=== PATIENT | male | born 1995 | race African-American/Black ===

== ENCOUNTER 2023-06-28 13:13 | Emergency (ER) | payer OTHER ==
[~2023-06-28] VITALS: Ht 182.9 cm; Wt 73.0 kg
[2023-06-28] MEDS ORDERED: CIALIS (13:22)
[2023-06-28] MEDS ORDERED: SEROQUEL (13:22)
[2023-06-28] MEDS ORDERED: DEPAKOTE (13:22)
[2023-06-28 15:00] LABS: BASOPHILS % 0.2 % (0.0-2.0); HEMATOCRIT. 42.9 % (42.0-52.0); HEMOGLOBIN. 14.1 g/dL (14.0-18.0); LYMPHOCYTES % 16.8 % (20.0-50.0); MEAN CORPUSCULAR HEMOGLOBIN 27.5 pg (28.0-32.0); MEAN CORPUSCULAR VOLUME 83.4 fL (80.0-94.0); MEAN PLATELET VOLUME 9.3 fl (7.4-10.4); MONOCYTES % 7.9 % (2.0-8.0); NEUTROPHILS % 75.1 % (40.0-76.0); PLATELET 242 x1000/uL (130-400); RED BLOOD CELL COUNT 5.14 mill/uL (4.7-6.1); RED CELL DISTRIBUTION WIDTH 13.9 % (11.6-14.6); WHITE BLOOD COUNT 8.6 x1000/uL (4.5-11.0)
[2023-06-28 15:21] LABS: *AMPHETAMINES SCREEN URINE NEGATIVE (NEGATIVE); *BARBITURATES SCREEN URINE NEGATIVE (NEGATIVE); *BENZODIAZEPINES SCREEN URINE NEGATIVE (NEGATIVE); *COCAINE SCREEN URINE NEGATIVE (NEGATIVE); CANNABINOID URINE SCREEN PRESUMTIVE POSITIVE (NEGATIVE); ECSTASY MDMA SCREEN URINE NEGATIVE (NEGATIVE); OPIATES URINE SCREEN NEGATIVE (NEGATIVE); PHENCYCLIDINE URINE SCREEN NEGATIVE (NEGATIVE)
[2023-06-28 15:24] LABS: ACETAMINOPHEN <2 ug/mL ug/mL (10-30); CALCIUM 9.8 mg/dL (8.5-10.1); CARBON DIOXIDE 27 mEq/L (21-32); CHLORIDE 103 mEq/L (98-107); GLUCOSE 95 mg/dL (70-105); INDEX HEMOLYSI 1 (1-3); INDEX ICTERIC 1 (1-4); INDEX LIPEMIC 1 (1-3); POTASSIUM 3.3 mEq/L (3.5-5.1); SODIUM 139 mEq/L (136-145)
[2023-06-28 15:50] LABS: UREA NITROGEN BLOOD 14 mg/dL (7-21)
[2023-06-28 17:01] LABS: ETHANOL BLOOD < 10 mg/dL (<10)
[2023-06-28] MEDS ORDERED: POTASSIUM CHLORIDE 20MEQ/PACKET PO NR (18:00)
[2023-06-29] MEDS ORDERED: ZIPRASIDONE MESYLATE 20MG/VIAL IM NR (02:30)
[2023-06-29] MEDS ORDERED: MIDAZOLAM HCL 2 MG/2 ML VIAL IV ONE (12:45)
[2023-06-29] MEDS ORDERED: ZIPRASIDONE MESYLATE 20MG/VIAL IM ONE (12:45)
[2023-06-29] MEDS ORDERED: MIDAZOLAM HCL 2 MG/2 ML VIAL IM NR (13:30)
[2023-06-29] MEDS: OLANZAPINE 5MG TABLET ODT PO SCH ×2 (14:04→18:30)
[2023-06-30] MEDS: OLANZAPINE 5MG TABLET ODT PO SCH ×2 (09:58→18:50)
[2023-06-30] MEDS ORDERED: OLANZAPINE 10 MG/VIAL IM ONE (20:30)
[2023-06-30 21:45] VITALS: O2SAT 99
[2023-07-01] MEDS ORDERED: QUETIAPINE FUMARATE 50MG TABLET PO STA (02:04)
[2023-07-01] MEDS ORDERED: HALOPERIDOL LACTATE 5MG/ML VIAL IM ONE (04:45)
[2023-07-01] MEDS ORDERED: LORAZEPAM 2MG/ML CPJ IM ONE (04:45)
[2023-07-01 12:51] LABS: CALCIUM 8.9 mg/dL (8.5-10.1); CARBON DIOXIDE 27 mEq/L (21-32); CHLORIDE 107 mEq/L (98-107); INDEX HEMOLYSI 1 (1-3); INDEX ICTERIC 1 (1-4); INDEX LIPEMIC 1 (1-3); POTASSIUM 3.8 mEq/L (3.5-5.1); SODIUM 140 mEq/L (136-145); UREA NITROGEN BLOOD 13 mg/dL (7-21)
[2023-07-01 12:54] LABS: CREATININE 1.1 mg/dL (0.6-1.3); GLUCOSE 78 mg/dL (70-105)
[2023-07-01 15:53] VITALS: BP 127/81; PULSE 81; RESP 18; TEMP 99.4
== END 2023-07-01 15:55 ==
LOC: ER 14:34
DX: R45.6 Violent behavior (principal); F31.9 Bipolar disorder, unspecified; F20.9 Schizophrenia, unspecified
CPT/HCPCS: 80305; 80048 ×2; 80307; 80329; 80320; 85025; 36415 ×2; 99285; J3486; J3490; Z7610 ×3; J1630; J2060; G0480